=== PATIENT | female | born 1940 | race Caucasian/White ===

== ENCOUNTER 2017-11-15 14:46 | Inpatient (IN) | payer OTHER, BC ==
[~2017-11-15] VITALS: Ht 165.1 cm; Wt 58.5 kg
[~2017-11-15 14:46] MED LIST: HYDROCODON-ACE1 EAC7 PO; NORVASC5 M1 PO
[2017-11-15 14:51] VITALS: BP 125/46
[2017-11-15] MEDS ORDERED: NEURONTIN 300300 M1 PO (14:54)
[2017-11-15 15:31] LABS: ABSOLUTE LYMPHOCYTES 1.8 thou/uL (0.8-5.3); ABSOLUTE NEUTROPHILS 5.5 thou/uL (1.6-8.1); BASOPHILS 0.6 %; EOSINOPHILS 0.4 %; HEMATOCRIT 43.8 % (37.0-47.0); HEMOGLOBIN 15.1 gm/dL (12.0-15.0); LYMPHOCYTES 21.3 %; MCH 32.6 pg (26.0-34.0); MCHC 34.5 g/dL (28.0-37.0); MCV 94.5 fL (80.0-100.0); MONOCYTES 12.1 %; MPV 9.1 fl. (7.2-11.1); NUCLEATED RBCS 0 /100WBC; PLATELET COUNT* 162 thou/uL (150-400); POLYS 65.6 %; RBC 4.64 mil/uL (4.20-5.00); RDW-CV 13.2 % (10.5-14.5); WBC 8.4 thou/uL (4.0-11.0)
[2017-11-15 15:41] LABS: ANION GAP 12 mmol/L (7-16); APTT 37.4 Seconds (25.0-31.3); BUN 17 mg/dL (7-18); CALCIUM 8.5 mg/dL (8.5-10.1); CHLORIDE 100 mmol/L (98-107); CO2 25 mmol/L (21-32); CREATININE 0.8 mg/dL (0.6-1.3); GLUCOSE 101 mg/dL (70-99); INR 1.1; PROTIME 10.3 Seconds (9.20-11.50); SODIUM 137 mmol/L (136-145)
[2017-11-15 15:43] LABS: POTASSIUM 2.8 mmol/L (3.5-5.1)
[2017-11-15 15:52] LABS: ALBUMIN 3.2 g/dL (3.4-5.0); ALKALINE PHOSPHATASE 65 U/L (46-116); NT-PRO BRAIN NAT PEPTIDE 254 pg/mL (<300); SGOT 22 U/L (15-37); SGPT 18 U/L (30-65); TOTAL BILIRUBIN 0.5 mg/dL (<0.1-1.0); TOTAL PROTEIN 7.1 g/dL (6.4-8.2); TROPONIN-I LEVEL <0.06 ng/mL (<0.06)
[2017-11-15 16:38] LABS: URINE BILIRUBIN NEGATIVE (Negative); URINE BLOOD TRACE (Negative); URINE CLARITY CLEAR; URINE COLOR YELLOW; URINE GLUCOSE-RANDOM NEGATIVE (Negative); URINE KETONES NEGATIVE (Negative); URINE LEUKOCYTES-REFLEX NEGATIVE (Negative); URINE NITRITE-REFLEX NEGATIVE (Negative); URINE PROTEIN NEGATIVE (Negative); URINE UROBILINOGEN 0.2 E.U./dl (0.2-1.0)
[2017-11-15 16:42] VITALS: BP 130/51
[2017-11-15 16:56] LABS: INFLUENZA A ANTIGEN None Detected (None Detect); INFLUENZA B ANTIGEN None Detected (None Detect)
[2017-11-15 17:06] VITALS: BP 124/53
[2017-11-15 19:30] VITALS: BP 14/45
[2017-11-16 04:43] LABS: HEMOGLOBIN 13.7 gm/dL (12.0-15.0); MCH 32.2 pg (26.0-34.0); MCHC 34.1 g/dL (28.0-37.0); MCV 94.5 fL (80.0-100.0); MPV 9.3 fl. (7.2-11.1); RBC 4.24 mil/uL (4.20-5.00); RDW-CV 13.4 % (10.5-14.5); WBC 2.4 thou/uL (4.0-11.0)
[2017-11-16 05:00] LABS: CREATININE 0.6 mg/dL (0.6-1.3); MAGNESIUM 2.3 mg/dL (1.8-2.4); POTASSIUM 3.7 mmol/L (3.5-5.1)
[2017-11-16 07:30] VITALS: BP 115/53
--- NOTE | 2017-11-16 12:36 | EKG ---
[place] [address] ELECTROCARDIOGRAM REPORT Name: JUSTIN NARVAEZ Room: [address] ADM IN .R.#: [id number] Admission: 11/15/17 Attend Phys: Edson Farrell MD Discharge: Date of : 44 Report #: [id number] THIS REPORT FOR: //name// [facility] ED Test Date: 2017-11-15 Test Time: 15:33:06 Pat Name: JUSTIN NARVAEZ Department: Room: [facility] Gender: F Library Supervisor: Brianda SINGH : 1940 Requested By: Michael Cullen Order Number: [id number] MD: Arturo Nicholson Measurements Intervals [place] Rate: 67 P: 95 MA: 128 QRS: 50 QRSD: 126 T: 71 QT: 435 QTc: 460 Interpretive Statements Sinus rhythm Baseline wander in lead(s) I,II,aVR,aVF Compared to ECG 05/22/2014 19:42:51 Sinus arrhythmia no longer present Electronically Signed On 11-16-2017 12:36:38 PRODUCTION EXPERT by Arturo Nicholson [email or web address] <ELECTRONICALLY SIGNED> By: Arturo Nicholson MD, [facility] 11/16/17 1236 1533 1533 Arturo Nicholson MD, [facility] /EPI
[2017-11-16 17:45] VITALS: BP 117/63
[2017-11-17] VITALS: BP 103/48
[2017-11-17 07:40] VITALS: BP 118/53
[2017-11-17] MEDS ORDERED: MUCINEX600 MG PO (09:17)
[2017-11-17] MEDS ORDERED: LEVAQUIN 750 M750 MG PO (09:17)
[2017-11-17] MEDS ORDERED: TAMIFLU30 MG PO (09:17)
[2017-11-17] MEDS ORDERED: PREDNISONE 10 M10 MG PO (09:17)
[2017-11-17] MEDS ORDERED: VENTOLIN HFA INH8 GM INH (09:17)
[2017-11-17 17:00] VITALS: BP 122/44
[2017-11-17 22:54] VITALS: BP 115/48
[2017-11-18] VITALS: BP 148/52
[2017-11-18 07:45] VITALS: BP 129/48
[2017-11-18 14:40] VITALS: BP 129/48
[2017-11-18 14:59] VITALS: BP 129/48
[2017-11-18 15:31] VITALS: BP 129/48
[2017-11-18 16:02] VITALS: BP 129/48
== END 2017-11-18 16:02 | disposition home or self-care (01) | DRG 189 ==
LOC: M.ERS 14:46 → M.3W 16:02 → M.TBA-ER 16:02 → M.3W 16:48
PROVIDERS: Emergency Medicine Emergency Medical Services; ADMIT Internal Medicine
DX: J96.01 Acute respiratory failure with hypoxia (principal); J20.8 Acute bronchitis due to other specified organisms; J11.1 Influenza due to unidentified influenza virus with other respiratory manifestations; M19.90 Unspecified osteoarthritis, unspecified site; I10 Essential (primary) hypertension; F17.210 Nicotine dependence, cigarettes, uncomplicated; E87.6 Hypokalemia; J44.9 Chronic obstructive pulmonary disease, unspecified; Z90.710 Acquired absence of both cervix and uterus; Z79.899 Other long term (current) drug therapy

== ENCOUNTER → 2018-02-04 | Outpatient (CLI) | payer OTHER, BC ==
[~2018-02-04] MED LIST changes: +LEVAQUIN 750 M750 MG PO; +MUCINEX600 MG PO; +NEURONTIN 300300 M1 PO; +PREDNISONE 10 M10 MG PO; +TAMIFLU30 MG PO; +VENTOLIN HFA INH8 GM INH
== END ==
LOC: M.RAD 10:24
DX: Z12.31 Encounter for screening mammogram for malignant neoplasm of breast (principal)

== ENCOUNTER → 2019-03-09 | Outpatient (CLI) | payer OTHER, BC | LOC: M.RAD 09:18 | DX: M81.0 Age-related osteoporosis without current pathological fracture (principal); Z78.0 Asymptomatic menopausal state ==

== ENCOUNTER → 2021-05-10 | Outpatient (CLI) | payer OTHER, BC | LOC: M.RAD 14:06 | PROVIDERS: ATTEND Family Medicine | DX: M81.0 Age-related osteoporosis without current pathological fracture (principal) ==

== ENCOUNTER 2021-10-16 17:24 | Emergency (ER) | payer OTHER, BC ==
[~2021-10-16] VITALS: Ht 165.1 cm; Wt 59.0 kg
[2021-10-16] MEDS ORDERED: MELOXICAM7.5 MG PO (17:34)
[2021-10-16] MEDS ORDERED: CALCIUM500 MG PO (17:35)
[2021-10-16 19:19] VITALS: BP 169/70
== END 2021-10-16 19:19 | disposition left against medical advice (07) ==
LOC: M.ERS 17:24
DX: R51.9 Headache, unspecified (principal); Z53.21 Procedure and treatment not carried out due to patient leaving prior to being seen by health care provider